=== PATIENT | female | born 1980 ===

== ENCOUNTER 2022-07-06 11:22 | Inpatient (IN) ==
[2022-07-06] MEDS ORDERED: nitroGLYCERIN DRIP 25,000 MCG/250 ML BTL IV SCH ×2 (14:00→14:33)
[2022-07-06] MEDS: cefTRIAXone 1 gm/50 mL D5W 1 GM/50 ML BAG IV SCH (14:49)
[2022-07-06 15:27] LABS: ABS Basophils 0.1 10^3/ul (0-0.2); ABS Eosinophils 0.1 10^3/ul (0-0.6); ABS Lymphocytes 0.5 10^3/ul (1.0-4.8); ABS Monocytes 0.5 10^3/ul (0-0.8); ABS Neutrophils 8.3 10^3/ul (1.5-7.7); Eosinophil % 0.9 %; Hematocrit 25 % (35-47); Lymphocyte % 5.1 %; Mean Corpuscular HGB Conc 32 g/dL (31-36); Mean Corpuscular Hemoglobin 29 pg (27-31); Mean Corpuscular Volume 92 fL (80-97); Mean Platelet Volume 6.6 fL (7.4-10.4); Platelet Count 258 10^3/uL (150-450); Red Blood Count 2.72 10^6 /uL (3.70-4.87); Red Cell Distribution Width 17 % (10-15); White Blood Count 9.4 10^3/uL (3.5-10.8)
[2022-07-06 15:55] LABS: Albumin 3.1 g/dL (3.2-5.2); Calcium 10.3 mg/dL (8.6-10.3); Globulin 3.1 g/dL (2-4); Magnesium 2.2 mg/dL (1.9-2.7); Phosphorus 8.2 mg/dL (2.5-5.0); Total Bilirubin 0.5 mg/dL (0.2-1.0); Total Protein 6.2 g/dL (6.4-8.9); eGFR CKD-EPI 5.8 (>60)
[2022-07-06 15:57] LABS: Potassium 6.9 mmol/L (3.5-5.0)
[2022-07-06 16:23] LABS: Hepatitis B Surface Antigen Nonreactive (Nonreactive)
[2022-07-06] MEDS: Heparin 1,000 UNIT/ML 10 ml (10,000 UNITS) CATHLAB/DIALYSIS DIALYSIS ONE ×3 (16:25→18:38)
[2022-07-06 16:40] LABS: Hepatitis B Surface Ab Immune (Immune)
[2022-07-07 00:25] LABS: Blood Urea Nitrogen 33 mg/dL (6-24); CO2 Carbon Dioxide 26 mmol/L (22-32); Calcium 9.5 mg/dL (8.6-10.3); Chloride 97 mmol/L (101-111); Glucose 86 mg/dL (70-100); Sodium 132 mmol/L (135-145); eGFR CKD-EPI 11.1 (>60)
[2022-07-07 00:28] LABS: Anion Gap 9 mmol/L (2-11)
[2022-07-07 04:41] LABS: ABS Eosinophils 0.2 10^3/ul (0-0.6); ABS Lymphocytes 0.7 10^3/ul (1.0-4.8); ABS Monocytes 0.3 10^3/ul (0-0.8); ABS Neutrophils 5.3 10^3/ul (1.5-7.7); Eosinophil % 2.4 %; Hematocrit 28 % (35-47); Hemoglobin 8.9 g/dL (12.0-16.0); Mean Corpuscular HGB Conc 32 g/dL (31-36); Mean Corpuscular Hemoglobin 29 pg (27-31); Mean Corpuscular Volume 92 fL (80-97); Mean Platelet Volume 6.9 fL (7.4-10.4); Platelet Count 243 10^3/uL (150-450); Red Blood Count 3.06 10^6 /uL (3.70-4.87); Red Cell Distribution Width 17 % (10-15); White Blood Count 6.5 10^3/uL (3.5-10.8)
[2022-07-07 05:17] LABS: Calcium 9.8 mg/dL (8.6-10.3); Phosphorus 7.4 mg/dL (2.5-5.0); eGFR CKD-EPI 9.9 (>60)
[2022-07-07 05:23] LABS: Potassium 5.1 mmol/L (3.5-5.0)
[2022-07-07] MEDS: Azithromycin 500 mg/250 ml NS 500 MG/250 ML BAG IVPB SCH (07:57)
[2022-07-07] MEDS: Isosorbide Mononit ER 30mg TAB PO SCH (07:57)
[2022-07-07] MEDS ORDERED: CMCS: Isosorbide Mononitr 20 mg (NF) PO ONE (12:30)
[2022-07-07] MEDS: cefTRIAXone 1 gm/50 mL D5W 1 GM/50 ML BAG IV SCH (14:19)
[2022-07-07] MEDS: niCARdipine 0.1MG/ML IVPREMIX 20 MG/200 ML BAG IV SCH (14:29)
[2022-07-08] MEDS: hydrALAZINE 20 mg/ml 1 ML Vial IV IV SLOW PU PRN ×2 (03:37→17:34)
[2022-07-08 04:16] LABS: ABS Basophils 0.1 10^3/ul (0-0.2); ABS Eosinophils 0.3 10^3/ul (0-0.6); ABS Lymphocytes 0.7 10^3/ul (1.0-4.8); ABS Monocytes 0.5 10^3/ul (0-0.8); ABS Neutrophils 5.6 10^3/ul (1.5-7.7); Eosinophil % 3.6 %; Hematocrit 28 % (35-47); Hemoglobin 8.8 g/dL (12.0-16.0); Lymphocyte % 9.5 %; Mean Corpuscular HGB Conc 32 g/dL (31-36); Mean Corpuscular Hemoglobin 29 pg (27-31); Mean Corpuscular Volume 91 fL (80-97); Mean Platelet Volume 6.7 fL (7.4-10.4); Nucleated Red Blood Cells % 0.1; Platelet Count 245 10^3/uL (150-450); Red Blood Count 3.02 10^6 /uL (3.70-4.87); Red Cell Distribution Width 16 % (10-15); White Blood Count 7.1 10^3/uL (3.5-10.8)
[2022-07-08 04:51] LABS: Calcium 9.3 mg/dL (8.6-10.3); Magnesium 2.1 mg/dL (1.9-2.7)
[2022-07-08 04:52] LABS: Potassium 5.4 mmol/L (3.5-5.0)
[2022-07-08] MEDS: niCARdipine 0.1MG/ML IVPREMIX 20 MG/200 ML BAG IV SCH (04:55)
[2022-07-08 04:56] LABS: eGFR CKD-EPI 6.8 (>60)
[2022-07-08] MEDS: Isosorbide Mononit ER 30mg TAB PO SCH (07:39)
[2022-07-08] MEDS: Azithromycin 500 mg/250 ml NS 500 MG/250 ML BAG IVPB SCH (07:41)
[2022-07-08] MEDS ORDERED: Prochlorperazine 5 mg/ml 2 ml VIAL (10 mg) IV ONE (08:21)
[2022-07-08] MEDS: cefTRIAXone 1 gm/50 mL D5W 1 GM/50 ML BAG IV SCH (13:04)
[2022-07-09] MEDS: niCARdipine 0.1MG/ML IVPREMIX 20 MG/200 ML BAG IV SCH (03:04)
[2022-07-09] MEDS: hydrALAZINE 20 mg/ml 1 ML Vial IV IV SLOW PU PRN ×3 (06:34→20:03)
[2022-07-09] MEDS: Isosorbide Mononit ER 30mg TAB PO SCH (07:36)
[2022-07-09 07:43] LABS: ABS Eosinophils 0.1 10^3/ul (0-0.6); ABS Lymphocytes 0.5 10^3/ul (1.0-4.8); ABS Monocytes 0.5 10^3/ul (0-0.8); ABS Neutrophils 6.2 10^3/ul (1.5-7.7); Eosinophil % 1.9 %; Hematocrit 26 % (35-47); Hemoglobin 8.6 g/dL (12.0-16.0); Lymphocyte % 6.2 %; Mean Corpuscular HGB Conc 33 g/dL (31-36); Mean Corpuscular Hemoglobin 29 pg (27-31); Mean Corpuscular Volume 90 fL (80-97); Mean Platelet Volume 6.4 fL (7.4-10.4); Platelet Count 250 10^3/uL (150-450); Red Blood Count 2.91 10^6 /uL (3.70-4.87); Red Cell Distribution Width 16 % (10-15); White Blood Count 7.3 10^3/uL (3.5-10.8)
[2022-07-09 08:25] LABS: eGFR CKD-EPI 4.8 (>60)
[2022-07-09 08:31] LABS: Potassium 5.9 mmol/L (3.5-5.0)
[2022-07-09] MEDS: Heparin 1,000 UNIT/ML 10 ml (10,000 UNITS) CATHLAB/DIALYSIS DIALYSIS PRN ×5 (09:31→13:31)
[2022-07-09] MEDS: Morphine 2 MG/ML SYRINGE IV PRN ×2 (09:38→12:47)
[2022-07-09] MEDS ORDERED: LORazepam 2 mg VIAL 1 ml IV PUSH ONE (10:44)
[2022-07-09] MEDS ORDERED: Lorazepam PYXIS KEY PRN (10:44)
[2022-07-09] MEDS ORDERED: cloNIDine 0.3 MG PATCH 0.3 MG/24 HR 7 DAY PATCH TRANSDERM SCH (14:00)
[2022-07-09] MEDS: cefTRIAXone 1 gm/50 mL D5W 1 GM/50 ML BAG IV SCH (14:11)
[2022-07-09] MEDS ORDERED: hydrALAZINE 20 mg/ml 1 ML Vial IV IV SLOW PU ONE (20:30)
[2022-07-09] MEDS ORDERED: Ondansetron 4 mg VIAL 2 MG/ML 2 ml VIAL ONE (20:31)
[2022-07-09] MEDS: Ondansetron 4 mg VIAL 2 MG/ML 2 ml VIAL IV PRN (20:32)
[2022-07-09] MEDS ORDERED: Metoprolol Tartrate 5 mg VIAL 5 ml VIAL (1 mg/ml) IV ONE (23:45)
[2022-07-10] MEDS ORDERED: Caffeine Citrate ORAL 20 MG/ML ORAL.SOLN 3 ML (preservative free) PO ONE (00:11)
[2022-07-10] MEDS ORDERED: niCARdipine 0.1MG/ML IVPREMIX 20 MG/200 ML BAG IV SCH (02:00)
[2022-07-10 06:33] LABS: Hematocrit 28 % (35-47); Hemoglobin 9.2 g/dL (12.0-16.0); Mean Corpuscular HGB Conc 34 g/dL (31-36); Mean Corpuscular Hemoglobin 30 pg (27-31); Mean Corpuscular Volume 90 fL (80-97); Red Blood Count 3.07 10^6 /uL (3.70-4.87); Red Cell Distribution Width 16 % (10-15)
[2022-07-10 07:32] LABS: ABS Basophils 0.1 10^3/ul (0-0.2); ABS Eosinophils 0.2 10^3/ul (0-0.6); ABS Lymphocytes 0.8 10^3/ul (1.0-4.8); ABS Monocytes 0.6 10^3/ul (0-0.8); ABS Neutrophils 5.9 10^3/ul (1.5-7.7); Eosinophil % 3.2 %; Lymphocyte % 10.2 %; Nucleated Red Blood Cells % 0.1; Platelet Count 230 10^3/uL (150-450); White Blood Count 7.7 10^3/uL (3.5-10.8)
[2022-07-10] MEDS: Heparin 1,000 UNIT/ML 10 ml (10,000 UNITS) CATHLAB/DIALYSIS DIALYSIS PRN ×4 (07:44→11:12)
[2022-07-10 07:49] LABS: Calcium 10.1 mg/dL (8.6-10.3)
[2022-07-10] MEDS ORDERED: Isosorbide Mononit ER 60mg TAB PO SCH (09:00)
[2022-07-10 09:08] LABS: eGFR CKD-EPI 9.2 (>60)
[2022-07-10] MEDS: Ondansetron 4 mg VIAL 2 MG/ML 2 ml VIAL IV PRN (12:22)
[2022-07-10 13:09] VITALS: BP 153/94
[2022-07-10] MEDS ORDERED: Ondansetron ODT 4 mg TAB 4 MG TAB ONE (14:07)
== END 2022-07-10 14:00 | disposition home or self-care (01) | DRG 682 ==
LOC: ICU 13:02
PROVIDERS: ADMIT Internal Medicine Critical Care Medicine; ATTEND Internal Medicine Critical Care Medicine